=== PATIENT | male | born 1970 | race African-American/Black ===

== ENCOUNTER 2025-05-31 17:19 | Observation (INO) | payer OTHER, SELFPAY ==
[2025-05-31] VITALS (14 sets, daily range): BP systolic 162–209; BP diastolic 85–101; PULSE 68–88; RESP 8–21; TEMP 36.8; O2SAT 92–98; BMI 30.3
--- NOTE | 2025-05-31 17:34 | EKG_ITS ---
[id number] [address] Test Date: 2025-05-31 Pat Name: Petey Vaughan Department: Room: Gender: Male [employer]: : 1970 Requested By: Order Number: [id number] Reading MD: Jamal Melendez MD Measurements Intervals [place] Rate: 83 P: 63 IN: 232 QRS: 17 QRSD: 88 T: 62 QT: 360 QTc: 423 Interpretive Statements Sinus rhythm with 1st degree AV block Electronically Signed On 06-01-2025 11:24:06 PST by Jamal Melendez MD
--- NOTE | 2025-05-31 17:40 | DI.CT.S_ITS ---
PROCEDURE: CT HEAD/BRAIN WO CON INDICATIONS: facial tingling, balance changes TECHNIQUE: Noncontrast 4.5 mm thick angled axial sections acquired from the foramen magnum to the vertex, with coronal and sagittal reformats. For radiation dose reduction, the following was used: automated exposure control, adjustment of mA and/or kV according to patient size. COMPARISON: None. FINDINGS: Image quality: Diagnostic. CSF spaces: Basal cisterns are patent. No extra-axial fluid collections. Ventricles are normal in size and shape. Brain: No midline shift. No intracranial mass effect or hemorrhage. Joseph- white matter interface is normal. Skull and face: Calvarium and visualized facial bones are intact, without suspicious lesions. Sinuses: Visualized sinuses and mastoids are clear. IMPRESSION: No acute intracranial pathology. Dictated by: Kieran Cavazos M.D. on 05/31/2025 at 17:12 Approved by: Kieran Cavazos M.D. on 05/31/2025 at 17:13
--- NOTE | 2025-05-31 17:40 | DI.RAD.S_ITS ---
PROCEDURE: XR CHEST 1V INDICATIONS: Possible stroke TECHNIQUE: One view of the chest was acquired. COMPARISON: None. FINDINGS: Surgical changes and devices: None. Lungs and pleura: Lungs are clear. Right apical bulla. No pleural effusions or pneumothorax. Mediastinum: Mediastinal contours appear normal. Heart size is normal. Bones and chest wall: No suspicious bony lesions. Overlying soft tissues appear unremarkable. IMPRESSION: No acute cardiopulmonary abnormality is seen. Dictated by: Kieran Cavazos M.D. on 05/31/2025 at 17:14 Approved by: Kieran Cavazos M.D. on 05/31/2025 at 17:15
[2025-05-31 17:49] LABS: INR 0.9 (0.9-1.3); Prothrombin Time 10.6 SECONDS (9.4-12.5)
--- NOTE | 2025-05-31 17:49 | DI.CT.S_ITS ---
PROCEDURE: CT ANGIO HEAD AND NECK INDICATIONS: r facial tingling, balance changes TECHNIQUE: After the administration of intravenous contrast, 1 mm thick sections acquired from the aortic arch through the [place]. 3-dimensional aqprtwm-uibrtowjq-qtaigbhfye (MIP) and/or volume rendering reformats were acquired of the central intracranial vasculature and neck separately. For radiation dose reduction, the following was used: automated exposure control, adjustment of mA and/or kV according to patient size. COMPARISON: None. FINDINGS: Image quality: Diagnostic. Cerebral CT Angiogram: Internal carotid arteries: No acute findings. Intracranial ICA are patent with no significant stenosis. No occlusion. No aneurysm. Anterior cerebral arteries: Unremarkable. No significant stenosis. No occlusion. No aneurysm. Middle cerebral arteries: Unremarkable. No significant stenosis. No occlusion. No aneurysm. Posterior cerebral arteries: Unremarkable. No significant stenosis. No occlusion. No aneurysm. Basilar artery: Unremarkable. No significant stenosis. No occlusion. No aneurysm. Vertebral arteries: Unremarkable as visualized. Dural venous sinuses: Unremarkable given phase of enhancement. Other: Arterial phase appearance of the brain parenchyma is unremarkable. Neck CT Angiogram: Internal carotid arteries: Unremarkable. No significant stenosis. No dissection or occlusion. Common carotid arteries: Unremarkable. No significant stenosis. No dissection or occlusion. External carotid arteries: Unremarkable. No occlusion. Vertebral arteries: Unremarkable. No significant stenosis. No dissection or occlusion. Aortic Arch and Mediastinum: Partially visualized aortic arch unremarkable without evidence of aneurysm. Origins of the great vessels unremarkable. Other: Moderate paraseptal emphysema with a right apical bulla. No pneumothorax. IMPRESSION: No significant intracranial arterial abnormality is seen. No significant abnormality is seen within the arteries of the neck. Moderate paraseptal emphysema with right apical bulla. No pneumothorax. Any quantitative measurements of stenosis were performed using NASCET criteria. Dictated by: Kieran Cavazos M.D. on 05/31/2025 at 17:16 Approved by: Kieran Cavazos M.D. on 05/31/2025 at 17:20
[2025-05-31 17:52] LABS: PTT Partial Thromboplastin Tim 28 SECONDS (25.1-36.5)
[2025-05-31 17:55] LABS: Add Manual Diff / Slide Review NO; Hematocrit 43.1 % (41-53); Hemoglobin 14.1 g/dL (13.5-17.5); Lymphocytes Absolute Auto 2500 /uL (1100-4500); Mean Corpuscular HGB Conc 32.7 % (30-36); Mean Corpuscular Hemoglobin 27.3 PG (26-34); Mean Corpuscular Volume 83.5 fL (80-100); Platelet Count 210 X10^3/uL (150-400)
[2025-05-31 18:01] LABS: Alanine Aminotransferase 23 IU/L (<50); Albumin 4.4 g/dL (3.5-5.0); Albumin Globulin Ratio 1.3 (1.0-2.8); Alkaline Phosphatase 118 U/L (38-126); Blood Urea Nitrogen 16 mg/dL (9-20); Calcium 9.2 mg/dL (8.4-10.2); Carbon Dioxide 27 mmol/L (22-32); Chloride 103 mmol/L (98-107); Creatine Kinase 138 U/L (55-170); Estimated Glomerular Filt Rate > 60 mL/min (>60); Globulin 3.5 g/dL (1.7-4.1); Glucose 204 mg/dL (70-99); HEMOLYSIS 16 (0-50); Potassium 3.9 mmol/L (3.4-5.1); Sodium 140 mmol/L (137-145); Total Protein 7.9 g/dL (6.3-8.2)
[2025-05-31 18:12] LABS: Troponin I < 0.012 ng/mL (0.01-0.034)
--- NOTE | 2025-05-31 18:38 | ED_ITS ---
HPI - Neuro Symptoms/Deficit General Chief Complaint: Neuro Symptoms/Deficit Stated Complaint: possible stroke Time Seen by Provider: 05/31/25 18:08 Source: patient Mode of arrival: Ambulatory History of Present Illness HPI Narrative: 55-year-old male with a history of diabetes presents with right-sided upper extremity and facial numbness that started around 2 or 3 in the afternoon yesterday. today it felt like there was some light pressure over the right upper extremity. He never had any weakness or right facial droop or difficulty speaking. No other focal neurological deficits. No history of stroke or cardiovascular disease. He does have a history of sarcoidosis. On Anticoagulants: No Related Data Allergies Allergy/AdvReac Type Severity Reaction Status Date / Time No Known Allergies Allergy Verified 05/31/25 17:37 Review of Systems Review of Systems ROS Unobtainable: All systems reviewed & are unremarkable except as noted in HPI and below Hematologic/Lymphatic On Anticoagulants: No Patient History Social History Smoking Status: Current every day smoker Smoking Status: Current every day smoker tobacco type: cigarettes Exam Narrative Exam Narrative: General: Patient appears to be in no acute distress, acting appropriately Head: normocephalic, atraumatic, HEENT: Pupils equal round reactive, eyes tracking well, neck supple, no JVD Heart: regular rate and rhythm, no murmurs, rubs, or gallops heard Lungs: clear to auscultation, no adventitious sounds Abdomen: soft , nontender, nondistended, positive bowel sounds Neurological: Some right-sided facial numbness, moving all extremities well, alert and oriented x3, Psych: good judgment ,good insight, mood is normal. Initial Vital Signs Initial Vital Signs: Vital Signs Pulse Rate 87 05/31/25 17:28 Pulse Oximetry 97 05/31/25 17:28 Scores NIH Stroke Scale Level of Conciousness: Alert, keenly responsive Ask month/age: Answers both questions correctly. Open/close eyes, close hand: Performs both tasks correctly Best gaze horizontal: Normal Visual arizmendi: No visual loss Facial palsy: Normal symetrical movement Left arm drift: No drift for full 10 sec Right arm drift: No drift for full 10 sec Left leg drift: No drift for full 5 sec Right leg drift: No drift for full 5 sec Limb ataxia: Absent Sensory on face/arms/legs: Mild to moderate sensory loss, can tell touch Best language: No aphasia, normal Dysarthria: Normal Extinction or inattention: No abnormality Total NIH Stroke scale score: 1 Course Orders Ordered: ED Orders 05/31/25 19:46 Urine Culture Stat Urine Drug Screen, Rapid Stat Urine Microscopic Stat Acetaminophen (Acetaminophen 325 Mg Tablet) 650 mg PO Q6H PRN PRN Reason: Fever/Mild Pain (1-3) Aspirin (Aspirin Ec 81 Mg Tablet) 81 mg PO DAILY MYRNA Clopidogrel Bisulfate (Clopidogrel 75 Mg Tablet) 75 mg PO DAILY MYRNA Naloxone HCl (Naloxone 0.4 Mg/Ml Vial) 0.2 mg IV Q2MIN PRN PRN Reason: Opiate Reversal Ondansetron HCl (Ondansetron 4 Mg/2 Ml Inj) 4 mg IV Q8HR PRN PRN Reason: Nausea And Vomiting Discontinued Medications Aspirin (Aspirin Ec 325 Mg Tablet) 325 mg PO NOW ONE Stop: 05/31/25 21:00 Last Admin: 05/31/25 21:05 Dose: 325 mg Documented By: VIRGINIE Clopidogrel Bisulfate (Clopidogrel 75 Mg Tablet) 300 mg PO NOW ONE Stop: 05/31/25 21:00 Last Admin: 05/31/25 21:05 Dose: 300 mg Documented By: VIRGINIE Reevaluation(s) Reevaluation #1: Upon re-evaluation, patient is still having some slight numbness over the right side of his face Consultations Consultation #1: Dr. Davila stroke neurologist was consulted from [facility] who suggested dual antiplatelet therapy for 21 days along with a loading dose of aspirin and Plavix. Also Getting an MRI with and without contrast of the brain in the a.m.. and Getting an echocardiogram in the a.m. as well and an A1c and lipid panel. Consultation #2: Dr. Reji Odell hospitalist was consulted who graciously admitted the patient Vital Signs Vital signs: Vital Signs - 8 hr 05/31/25 17:28 05/31/25 17:29 05/31/25 17:29 Temperature Pulse Rate 87 87 Respiratory Rate Blood Pressure 205/94 H Pulse Oximetry 97 95 Oxygen Delivery Method 05/31/25 17:30 05/31/25 17:34 05/31/25 17:40 Temperature 98.3 F Pulse Rate 86 88 Respiratory Rate 18 Blood Pressure 205/94 H 209/101 H Pulse Oximetry 96 93 Oxygen Delivery Method Room Air 05/31/25 17:40 05/31/25 18:05 05/31/25 18:06 Temperature Pulse Rate 80 84 Respiratory Rate 20 Blood Pressure 192/93 H Pulse Oximetry 95 95 Oxygen Delivery Method 05/31/25 18:06 05/31/25 19:00 05/31/25 19:01 Temperature Pulse Rate 77 78 Respiratory Rate 10 L 18 Blood Pressure 201/91 H Pulse Oximetry 95 98 Oxygen Delivery Method Room Air 05/31/25 19:01 05/31/25 19:30 05/31/25 19:30 Temperature Pulse Rate 75 78 Respiratory Rate 8 L 13 Blood Pressure 202/97 H Pulse Oximetry 98 96 Oxygen Delivery Method Room Air Room Air MDM - Neuro Symptoms/Deficit Lab Data 05/31/25 17:35 05/31/25 17:35 Labs: Lab Results 05/31/25 05/31/25 05/31/25 Range/Units 17:33 17:35 19:46 WBC 5.9 (4.5-11.0) X10^3/uL RBC 5.16 (4.5-5.9) X10^6/uL Hgb 14.1 (13.5-17.5) g/dL Hct 43.1 (41-53) % MCV 83.5 (80-100) fL MCH 27.3 (26-34) PG MCHC 32.7 (30-36) % RDW 15.4 H (11.6-14.8) % Plt Count 210 (150-400) X10^3/uL Neut % (Auto) 45.3 L (50-75) % Lymph % (Auto) 43.3 H (25-40) % [place] % (Auto) 7.7 (3-14) % Eos % (Auto) 2.7 (2-4) % Baso % (Auto) 1.0 (0-2) % Neut # (Auto) 2700 (6578-1418) /uL Lymph # (Auto) 2500 (6727-0094) /uL [place] # (Auto) 500 (0-900) /uL Eos # (Auto) 200 (0-450) /uL Baso # (Auto) 100 (0-100) /uL PT 10.6 (9.4-12.5) SECONDS INR 0.9 (0.9-1.3) APTT 28 (25.1-36.5) SECONDS Sodium 140 (137-145) mmol/L Potassium 3.9 (3.4-5.1) mmol/L Chloride 103 (98-107) mmol/L Carbon Dioxide 27 (22-32) mmol/L BUN 16 (9-20) mg/dL Creatinine 1.37 H (0.66-1.25) mg/dL Estimated GFR > 60 (>60) mL/min BUN/Creatinine Ratio 11.7 (6-22) Glucose 204 H (70-99) mg/dL POC Whole Bld Glucose 194 H (70-99) mg/dL Calcium 9.2 (8.4-10.2) mg/dL Total Bilirubin 0.4 (0.2-1.3) mg/dL AST 29 (17-59) IU/L ALT 23 (<50) IU/L Alkaline Phosphatase 118 (38-126) U/L Total Creatine Kinase 138 (55-170) U/L Troponin I < 0.012 (0.01-0.034) ng/mL Total Protein 7.9 (6.3-8.2) g/dL Albumin 4.4 (3.5-5.0) g/dL Globulin 3.5 (1.7-4.1) g/dL Albumin/Globulin Ratio 1.3 (1.0-2.8) Urine RBC 0-1/hpf (0-5/HPF) Urine WBC None seen (0-5/HPF) Ur Squamous Epith Cells None seen (0-5/HPF) Urine Bacteria None seen (None) Ur Culture Indicated? Cult not indicated Vol Urine Centrifuged 10ml (spun) U Opiates 300ng/mL cut Negative (Negative) Ur Oxycodone Screen Negative (Negative) Urine Methadone Screen Negative (Negative) Ur Barbiturates Screen Negative (Negative) U Tricyclic Antidepress Negative (Negative) Ur Phencyclidine Scrn Negative (Negative) Ur Amphetamines Screen Negative (Negative) U Methamphetamines Scrn Negative (Negative) Ur MDMA Scrn (Ecstasy) Negative (Negative) U Benzodiazepines Scrn Negative (Negative) Urine Cocaine Screen Negative (Negative) U Marijuana (THC) Screen Negative (Negative) Urine pH Normal (Normal) Urine Specific [place] Normal (Normal) Ur Creatinine Normal (Normal) Point of Care Testing Glucose POC 194 Urine Dip Bedside Urine Glucose Negative Bedside Urine Bilirubin - Negative Bedside Urine Ketone - Negative Urine Specific [place] 1.005 Bedside Urine Occult Blood +/- Bedside Urine pH 7.5 Bedside Urine Protein +/- 15 Bedside Urine Urobilinogen +/- 1mg Bedside Urine Nitrite - Negative Bedside Urine Leukocytes - Negative Esterase Imaging Data CTA - brain/neck: Radiologist's Impression: No significant intracranial arterial abnormality is seen. No significant abnormality is seen within the arteries of the neck. Moderate paraseptal emphysema with right apical bulla. No pneumothorax. CT scan - head: Radiologist's Impression: No acute intracranial abnormality Chest x-ray: Radiologist's Impression: No acute cardiopulmonary abnormality MDM Narrative Medical decision making narrative: 55-year-old male who started with sudden right-sided numbness and light sensation that started yesterday and is still persisting today off and on. Patient's initial imaging studies were insignificant but patient will be admitted for a stroke rule out with permissive hypertension, MRI of the brain with and without contrast in a.m. and started on dual antiplatelet therapy for 21 days. Loading dose of aspirin and Plavix were given here in the ED. the patient's NIH score was 1. Hospitalist Dr. Odell graciously admitted the patient for further workup in the a.m.. Discharge Plan Departure Patient Disposition: Admitted as Observation Clinical Impression: Transient cerebral ischemia Qualifiers: Transient cerebral ischemia type: other Qualified Code(s): G45.8 - Other transient cerebral ischemic attacks and related syndromes Admit Date/Time: 05/31/25 21:12 Admit Provider: Reji Odell
--- NOTE | 2025-05-31 19:50 | PC.NURSE ---
Pt ambulatory to restroom without difficulty or assistance
[2025-05-31 19:57] LABS: Ur Specific Gravity Normal (Normal)
[2025-05-31 19:59] LABS: UR Morphine/Opiate cutoff 300 Negative (Negative); Urine MDMA Negative (Negative); Urine Methamphetamines Negative (Negative); Urine Tetrahydrocannabinol Negative (Negative); Urine Tricyclic Antidepressant Negative (Negative)
[2025-05-31 20:12] LABS: Culture Indicated Urine Cult Not Indicated
[2025-05-31] MEDS: ASPIRIN EC 325 MG TABLET PO (21:05)
[2025-05-31] MEDS: CLOPIDOGREL 75 MG TABLET 300 MG PO (21:05)
--- NOTE | 2025-05-31 23:10 | PC.NURSE ---
Pt in hospital bed, warm blankets provided. Continued plan of care discussed. No further requests or concerns at this time. Pt reconnected to cardiac, resp, blood pressure, and pulse ox monitors with alarms on and audible. VS stable at this time. Call light within reach.
[2025-06-01] VITALS (25 sets, daily range): BP systolic 110–174; BP diastolic 67–81; PULSE 60–87; RESP 9–23; O2SAT 94–98
--- NOTE | 2025-06-01 02:56 | DI.MRI.S_ITS ---
PROCEDURE: MR HEAD/BRAIN WO CON INDICATIONS: right sided weakness TECHNIQUE: Noncontrast axial T1 spin echo, axial T2 fast spin echo, sagittal and axial FLAIR, coronal T2 fast spin echo, axial gradient echo, axial diffusion and ADC through the brain. COMPARISON: [facility], CT, CT HEAD/BRAIN WO CON, 05/31/2025, 17:51. FINDINGS: Image quality: Excellent. CSF Spaces: Basal cisterns are patent. No extra-axial fluid collections. Ventricles are normal in size and shape. Brain: No intracranial masses or hemorrhage. Joseph/white matter interface is normal. Brainstem appears normal. Diffusion-weighted images demonstrate no acute infarct. No chronic ischemic insults. Normal intravascular flow voids are present. Skull and face: Calvarium has normal marrow signal. Orbits appear normal. Sinuses: Sinuses and mastoids are clear. IMPRESSION: Normal brain MRI. No acute intracranial process. Dictated by: Santino Alvarado M.D. on 06/01/2025 at 9:00 Approved by: Santino Alvarado M.D. on 06/01/2025 at 9:01
--- NOTE | 2025-06-01 02:59 | PC.NURSE ---
Pt resting quietly with eyes closed, resps even and not labored. No distress noted at this time. Pt opens eyes and acknowledges staff when door opens, then closes eyes and lies head back down. Pt remains connected to awake overnight monitor as ordered. VS stable at this time. Call light within reach. Dr. Odell on video visualizes pt at this time but does not conduct interview.
--- NOTE | 2025-06-01 06:01 | DI.ECHO.S_ITS ---
[facility] +---------+ Hospital : : [address] : : [place] : : [address] : : Phone: [phone] Echocardiogram Report + + :Name: RUTH MARIN Study Date: 06/01/2025 Height: 73 in : :Hospital ReadingLocation: Weight: 232 lb : : Gender: Male BSA: 2.3 m2 : :: 1970 Age: 55 yrs BP: 160/78 mmHg: :Reason For Study: TIA : :Ordering Physician: DEQUAN, : :RICK Performed By: Musa Ross : :Referring: RICK BOWDEN : + + Interpretation Summary - The left ventricular contractility is normal. Estimated ejection fraction is greater than 60% with no segmental wall motion abnormalities. Mild concentric LVH. Normal diastolic function. - The right ventricular contractility is normal. - All cardiac chambers are normal size. - No significant valvular abnormalities. - No intracardiac shunts noted on agitated saline contrast study. - No obvious intracardiac masses nor thrombi. - No hemodynamically significant pericardial effusion. Conclusion: Normal biventricular function with no significant valvular abnormalities nor intracardiac shunt. Procedure: A two-dimensional transthoracic echocardiogram with color flow and Doppler was performed. A saline contrast injection was performed to assess for cardiac shunting. The study quality was technically good. There is no prior echocardiogram noted for this patient. The patient was in normal sinus rhythm during the exam. Left Ventricle: The left ventricle is normal in size. Left ventricular wall thickness is mildly increased. There is no ventricular septal defect visualized. The ejection fraction is estimated to be 60-65%. There are no focal wall motion abnormalities. Diastolic parameters suggest probable normal left ventricular diastolic function and normal filling pressures. Right Ventricle: The right ventricle is grossly normal size. The right ventricular systolic function is normal. Atria: The left atrial size is normal. Right atrial size is normal. Injection of contrast documented no interatrial shunt. Mitral Valve: The mitral valve leaflets appear mildly thickened. There is no mitral regurgitation noted. Aortic Valve: The aortic valve is trileaflet. The aortic valve is mildly calcified. No aortic regurgitation is present. Tricuspid Valve: The tricuspid valve leaflets are thin and pliable. No tricuspid regurgitation. Pulmonic Valve: The pulmonic valve is not well seen, but is grossly normal. There is no pulmonic valvular regurgitation. Great Vessels: The aortic root is normal size. The dimensions of the ascending aorta are normal. The pulmonary artery is normal size. The inferior vena cava was not visualized. Pericardium/ Pleura There is no pericardial effusion. MMode/2D Measurements & Calculations LVIDd: 5.1 cm LVOT diam: 2.0 cm LVIDs: 3.6 cm Ao root diam: 3.4 cm FS: 29.0 % asc Aorta Diam: 3.4 cm EPSS: 0.66 cm IVSd: 1.3 cm LVPWd: 1.1 cm LV jacques. diameter/BSA (cm/m^2): 2.2 LV sys. diameter/BSA (cm/m^2): 1.6 LA A2 area: 13.5 cm2 RA long axis: 4.3 cm LA A4 area: 16.5 cm2 RA area: 15.1 cm2 LA length (vol): 4.9 cm RA vol: 44.8 ml LA vol: 38.9 ml RA : 19.6 ml/m2 LA vol index: 17.0 ml/m2 TAPSE: 2.8 cm Doppler Measurements & Calculations Ao V2 max: 137.0 cm/sec LVOT Max Xavier: 116.2 cm/sec Ao V2 mean: 95.0 cm/sec LV V1 max P.4 mmHg Ao max P.5 mmHg LV V1 VTI: 28.3 cm Ao mean P.9 mmHg FLO(I,D): 2.9 cm2 Ao V2 VTI: 30.7 cm FLO(V,D): 2.7 cm2 sev ratio: 0.92 FLO indexed to BSA (cm^2/m^2): 1.3 MV E max xavier: 76.5 cm/sec PA V2 max: 100.9 cm/sec MV A max xavier: 73.7 cm/sec PA V2 mean: 62.6 cm/sec MV E/A: 1.0 PA mean P.8 mmHg Med Peak E' Xavier: 6.7 cm/sec PA pr(Accel): 48.2 mmHg E/E' med: 11.4 Lat Peak E' Xavier: 9.5 cm/sec E/E' lat: 8.1 E/e' average: 9.7 MV dec time: 0.16 sec SV(LVOT): 89.8 ml Reading Physician:BELEN
--- NOTE | 2025-06-01 06:09 | P.HP_ITS ---
History of Present Illness History of Present Illness Date Patient Seen: 05/31/25 Time Patient Seen: 23:14 Chief complaint: possible stroke Narrative: 55-year-old male with past medical history of diabetes and sarcoidosis presents with right sided numbness. Per the patient's report, around 2 PM yesterday, the patient started to have acute onset of right sided facial and upper extremity numbness. The patient states that he feels like pressure over his right arm today but otherwise denies any weakness, slurred speech or facial drooping. The patient denies any prior history of stroke. Otherwise patient denies any fever or chills, nausea, vomiting, Amparo, chest pain or shortness of breath. In the emergency room, the patient was hemodynamically stable. CT scan and CT angio of the head and neck shows no acute finding. Patient blood pressure was slightly high with systolic in the 190s to 200s. Patient NIH score was 1. Our ER physician did discuss the case with neurology on-call and recommended dual antiplatelet therapy in which patient did have full dose aspirin and Plavix loading in the ER. Her ER physician requested admission for brain MRI and echocardiogram in the morning. [facility] Social History Smoking Status: Current every day smoker Meds Home Medications and Allergies Allergies Allergy/AdvReac Type Severity Reaction Status Date / Time No Known Allergies Allergy Verified 05/31/25 17:37 Review of Systems Review of Systems ROS: Yes All systems reviewed with the patient and are negative except as otherwise documented Exam Vital Signs (past 8 hours): - 05/31/25 23:08 06/01/25 02:58 Pulse Rate 77 62 Respiratory Rate 16 14 Blood Pressure [Left Arm] 162/85 H 155/70 H Pulse Oximetry 97 95 Oxygen Delivery Method Room Air Room Air Oxygen Delivery Method Room Air Narrative Exam Narrative: Physical Exam: GENERAL: The patient is not in any acute distressed. Awake and alert. HEENT: Nonicteric sclerae, PERRLA, EOMI. Oropharynx clear. Moist mucous membranes. Conjunctivae appear well perfused. HEART: Regular rate and rhythm without murmurs. No lower extremities edema. LUNGS: Clear to auscultation bilaterally. No wheezing, crackles or rhonchi ABDOMEN: Soft, positive bowel sounds, nontender. SKIN: No rash, no excessive bruising, petechiae, or purpura. NEUROLOGIC: AxO x 3. Cranial nerves II-XII intact without motor/sensory deficit. Objective Labs 05/31/25 17:35 05/31/25 17:35 Labs: Laboratory Results - last 24 hr 05/31/25 05/31/25 05/31/25 17:33 17:35 19:46 WBC 5.9 RBC 5.16 Hgb 14.1 Hct 43.1 MCV 83.5 MCH 27.3 MCHC 32.7 RDW 15.4 H Plt Count 210 Neut % (Auto) 45.3 L Lymph % (Auto) 43.3 H [place] % (Auto) 7.7 Eos % (Auto) 2.7 Baso % (Auto) 1.0 Neut # (Auto) 2700 Lymph # (Auto) 2500 [place] # (Auto) 500 Eos # (Auto) 200 Baso # (Auto) 100 PT 10.6 INR 0.9 APTT 28 Sodium 140 Potassium 3.9 Chloride 103 Carbon Dioxide 27 BUN 16 Creatinine 1.37 H Estimated GFR > 60 BUN/Creatinine Ratio 11.7 Glucose 204 H POC Whole Bld Glucose 194 H Calcium 9.2 Total Bilirubin 0.4 AST 29 ALT 23 Alkaline Phosphatase 118 Total Creatine Kinase 138 Troponin I < 0.012 Total Protein 7.9 Albumin 4.4 Globulin 3.5 Albumin/Globulin Ratio 1.3 Urine RBC 0-1/hpf Urine WBC None seen Ur Squamous Epith Cells None seen Urine Bacteria None seen Ur Culture Indicated? Cult not indicated Vol Urine Centrifuged 10ml (spun) U Opiates 300ng/mL cut Negative Ur Oxycodone Screen Negative Urine Methadone Screen Negative Ur Barbiturates Screen Negative U Tricyclic Antidepress Negative Ur Phencyclidine Scrn Negative Ur Amphetamines Screen Negative U Methamphetamines Scrn Negative Ur MDMA Scrn (Ecstasy) Negative U Benzodiazepines Scrn Negative Urine Cocaine Screen Negative U Marijuana (THC) Screen Negative Urine pH Normal Urine Specific [place] Normal Ur Creatinine Normal Assessment & Plan Assessment & Plan narrative: Symptoms of stroke with right facial and right arm numbness. Admit the patient to medical telemetry under observation. NIH score of 1. Otherwise patient is nonfocal. Will continue dual antiplatelet while waiting brain MRI with and without contrast. Will also obtain echocardiogram. PT OT in the morning. Will check a1c and lipids History of diabetes. Glucose in the 200s. Subcu insulin and monitor glucose. MAIKOL. Creatinine 1.4. Likely from dehydration. IV fluid and monitor renal function. Hypertension. Will monitor blood pressure and treat accordingly. DVT prophylaxis SCDs and on dual antiplatelet CODE STATUS full code. Disposition likely home in 1 to 2 days - As the provider of this telehealth evaluation, requested by the patient's evaluating physician, I attest that I introduced myself to the patient, provided my credentials and determined that telemedicine via a real-time, 2 way interactive audio and video platform is an appropriate and effective means of providing this service. - I reviewed the patient's chart and had a discussion with the member of the patient's treatment team. - The patient and I mutually agreed with continuation of this evaluation via telemedicine. The patient consented for the telemedicine evaluation. - This virtual encounter was taken place from [place] by Dr. Reji Odell. The patient was evaluated at [facility]. The encounter was approximately 35 minutes. The nurse was present during the entire time of the encounter and was able assists with the stethoscope to listen to the patients. Time-Based Coding :: [TOTAL MINUTES] spent with patient and on the chart (including review of chart, obtaining history, exam, reviewing outside data, placing orders, documenting exam and treatment plan, and counseling patient) on [DATE].
[2025-06-01 06:50] LABS: Add Manual Diff / Slide Review NO; Hematocrit 41.8 % (41-53); Hemoglobin 13.7 g/dL (13.5-17.5); Lymphocytes Absolute Auto 2100 /uL (1100-4500); Mean Corpuscular HGB Conc 32.7 % (30-36); Mean Corpuscular Hemoglobin 27.3 PG (26-34); Mean Corpuscular Volume 83.3 fL (80-100); Platelet Count 194 X10^3/uL (150-400)
[2025-06-01 07:05] LABS: Blood Urea Nitrogen 14 mg/dL (9-20); Calcium 9.2 mg/dL (8.4-10.2); Carbon Dioxide 28 mmol/L (22-32); Chloride 106 mmol/L (98-107); Cholesterol 230 mg/dL (140-199); Estimated Glomerular Filt Rate > 60 mL/min (>60); Glucose 152 mg/dL (70-99); HDL Cholesterol 46 mg/dL (40-60); HEMOLYSIS 48 (0-50); Potassium 4.4 mmol/L (3.4-5.1); Sodium 138 mmol/L (137-145); Triglycerides 71 mg/dL (35-150)
[2025-06-01 07:08] LABS: Hemoglobin A1C% w Est Avg Glu 7.5 % (4.0-6.0)
--- NOTE | 2025-06-01 07:13 | P.HP_ITS ---
History of Present Illness History of Present Illness Date Patient Seen: 06/01/25 Chief complaint: possible stroke Narrative: 55-year-old male with past medical history of diabetes and sarcoidosis presents with right sided numbness. Per the patient's report, around 2 PM yesterday, the patient started to have acute onset of right sided facial and upper extremity numbness. The patient states that he feels like pressure over his right arm today but otherwise denies any weakness, slurred speech or facial drooping. The patient denies any prior history of stroke. Otherwise patient denies any fever or chills, nausea, vomiting, [place], chest pain or shortness of breath. In the emergency room, the patient was hemodynamically stable. CT scan and CT angio of the head and neck shows no acute finding. Patient blood pressure was slightly high with systolic in the 190s to 200s. Patient NIH score was 1. Our ER physician did discuss the case with neurology on-call and recommended dual antiplatelet therapy in which patient did have full dose aspirin and Plavix loading in the ER. Her ER physician requested admission for brain MRI and echocardiogram in the morning. [facility] Social History Smoking Status: Current every day smoker Meds Home Medications and Allergies Allergies Allergy/AdvReac Type Severity Reaction Status Date / Time No Known Allergies Allergy Verified 05/31/25 17:37 Review of Systems Review of Systems ROS: Yes All systems reviewed with the patient and are negative except as otherwise documented Exam Vital Signs (past 8 hours): - 05/31/2523:08 06/01/2502:58 Pulse Rate 77 62 Respiratory Rate 16 14 Blood Pressure [Left Arm] 162/85 H 155/70 H Pulse Oximetry 97 95 Oxygen Delivery Method Room Air Room Air Oxygen Delivery Method Room Air Narrative Exam Narrative: Physical Exam: GENERAL: The patient is not in any acute distressed. Awake and alert. HEENT: Nonicteric sclerae, PERRLA, EOMI. Oropharynx clear. Moist mucous membranes. Conjunctivae appear well perfused. HEART: Regular rate and rhythm without murmurs. No lower extremities edema. LUNGS: Clear to auscultation bilaterally. No wheezing, crackles or rhonchi ABDOMEN: Soft, positive bowel sounds, nontender. SKIN: No rash, no excessive bruising, petechiae, or purpura. NEUROLOGIC: AxO x 3. Cranial nerves II-XII intact without motor/sensory deficit. Objective Labs 05/31/25 17:35 05/31/25 17:35 Labs: Laboratory Results - last 24 hr 05/31/25 05/31/25 05/31/25 17:33 17:35 19:46 WBC 5.9 RBC 5.16 Hgb 14.1 Hct 43.1 MCV 83.5 MCH 27.3 MCHC 32.7 RDW 15.4 H Plt Count 210 Neut % (Auto) 45.3 L Lymph % (Auto) 43.3 H [place] % (Auto) 7.7 Eos % (Auto) 2.7 Baso % (Auto) 1.0 Neut # (Auto) 2700 Lymph # (Auto) 2500 [place] # (Auto) 500 Eos # (Auto) 200 Baso # (Auto) 100 PT 10.6 INR 0.9 APTT 28 Sodium 140 Potassium 3.9 Chloride 103 Carbon Dioxide 27 BUN 16 Creatinine 1.37 H Estimated GFR > 60 BUN/Creatinine Ratio 11.7 Glucose 204 H POC Whole Bld Glucose 194 H Calcium 9.2 Total Bilirubin 0.4 AST 29 ALT 23 Alkaline Phosphatase 118 Total Creatine Kinase 138 Troponin I < 0.012 Total Protein 7.9 Albumin 4.4 Globulin 3.5 Albumin/Globulin Ratio 1.3 Urine RBC 0-1/hpf Urine WBC None seen Ur Squamous Epith Cells None seen Urine Bacteria None seen Ur Culture Indicated? Cult not indicated Vol Urine Centrifuged 10ml (spun) U Opiates 300ng/mL cut Negative Ur Oxycodone Screen Negative Urine Methadone Screen Negative Ur Barbiturates Screen Negative U Tricyclic Antidepress Negative Ur Phencyclidine Scrn Negative Ur Amphetamines Screen Negative U Methamphetamines Scrn Negative Ur MDMA Scrn (Ecstasy) Negative U Benzodiazepines Scrn Negative Urine Cocaine Screen Negative U Marijuana (THC) Screen Negative Urine pH Normal Urine Specific [place] Normal Ur Creatinine Normal Assessment & Plan Assessment & Plan narrative: Symptoms of stroke with right facial and right arm numbness. Admit the patient to medical telemetry under observation. NIH score of 1. Otherwise patient is nonfocal. Will continue dual antiplatelet while waiting brain MRI with and without contrast. Will also obtain echocardiogram. PT OT in the morning. Will check a1c and lipids History of diabetes. Glucose in the 200s. Subcu insulin and monitor glucose. MAIKOL. Creatinine 1.4. Likely from dehydration. IV fluid and monitor renal function. Hypertension. Will monitor blood pressure and treat accordingly. DVT prophylaxis SCDs and on dual antiplatelet CODE STATUS full code. Disposition likely home in 1 to 2 days [facility] Social History Smoking Status: Current every day smoker Meds Home Medications and Allergies Allergies Allergy/AdvReac Type Severity Reaction Status Date / Time No Known Allergies Allergy Verified 05/31/25 17:37 Exam Vital Signs (past 8 hours): - 06/01/25 02:58 06/01/25 06:40 Pulse Rate 62 68 Respiratory Rate 14 14 Blood Pressure [Left Arm] 155/70 H 160/78 H Pulse Oximetry 95 97 Oxygen Delivery Method Room Air Room Air Oxygen Delivery Method Room Air Objective Labs 06/01/25 06:38 06/01/25 06:38 Labs: Laboratory Results - last 24 hr 05/31/25 05/31/25 05/31/25 17:33 17:35 19:46 WBC 5.9 RBC 5.16 Hgb 14.1 Hct 43.1 MCV 83.5 MCH 27.3 MCHC 32.7 RDW 15.4 H Plt Count 210 Neut % (Auto) 45.3 L Lymph % (Auto) 43.3 H [place] % (Auto) 7.7 Eos % (Auto) 2.7 Baso % (Auto) 1.0 Neut # (Auto) 2700 Lymph # (Auto) 2500 [place] # (Auto) 500 Eos # (Auto) 200 Baso # (Auto) 100 PT 10.6 INR 0.9 APTT 28 Sodium 140 Potassium 3.9 Chloride 103 Carbon Dioxide 27 BUN 16 Creatinine 1.37 H Estimated GFR > 60 BUN/Creatinine Ratio 11.7 Glucose 204 H POC Whole Bld Glucose 194 H Calcium 9.2 Total Bilirubin 0.4 AST 29 ALT 23 Alkaline Phosphatase 118 Total Creatine Kinase 138 Troponin I < 0.012 Total Protein 7.9 Albumin 4.4 Globulin 3.5 Albumin/Globulin Ratio 1.3 Triglycerides Cholesterol LDL Cholesterol, Calc HDL Cholesterol Urine RBC 0-1/hpf Urine WBC None seen Ur Squamous Epith Cells None seen Urine Bacteria None seen Ur Culture Indicated? Cult not indicated Vol Urine Centrifuged 10ml (spun) U Opiates 300ng/mL cut Negative Ur Oxycodone Screen Negative Urine Methadone Screen Negative Ur Barbiturates Screen Negative U Tricyclic Antidepress Negative Ur Phencyclidine Scrn Negative Ur Amphetamines Screen Negative U Methamphetamines Scrn Negative Ur MDMA Scrn (Ecstasy) Negative U Benzodiazepines Scrn Negative Urine Cocaine Screen Negative U Marijuana (THC) Screen Negative Urine pH Normal Urine Specific [place] Normal Ur Creatinine Normal 06/01/25 06:38 WBC 4.6 RBC 5.02 Hgb 13.7 Hct 41.8 MCV 83.3 MCH 27.3 MCHC 32.7 RDW 15.5 H Plt Count 194 Neut % (Auto) 39.8 L Lymph % (Auto) 46.5 H [place] % (Auto) 9.0 Eos % (Auto) 3.6 Baso % (Auto) 1.1 Neut # (Auto) 1800 Lymph # (Auto) 2100 [place] # (Auto) 400 Eos # (Auto) 200 Baso # (Auto) 100 PT INR APTT Sodium 138 Potassium 4.4 Chloride 106 Carbon Dioxide 28 BUN 14 Creatinine 1.26 H Estimated GFR > 60 BUN/Creatinine Ratio 11.1 Glucose 152 H POC Whole Bld Glucose Calcium 9.2 Total Bilirubin AST ALT Alkaline Phosphatase Total Creatine Kinase Troponin I Total Protein Albumin Globulin Albumin/Globulin Ratio Triglycerides 71 Cholesterol 230 H LDL Cholesterol, Calc 170 H HDL Cholesterol 46 Urine RBC Urine WBC Ur Squamous Epith Cells Urine Bacteria Ur Culture Indicated? Vol Urine Centrifuged U Opiates 300ng/mL cut Ur Oxycodone Screen Urine Methadone Screen Ur Barbiturates Screen U Tricyclic Antidepress Ur Phencyclidine Scrn Ur Amphetamines Screen U Methamphetamines Scrn Ur MDMA Scrn (Ecstasy) U Benzodiazepines Scrn Urine Cocaine Screen U Marijuana (THC) Screen Urine pH Urine Specific [place] Ur Creatinine Assessment & Plan Time-Based Coding :: [TOTAL MINUTES] spent with patient and on the chart (including review of chart, obtaining history, exam, reviewing outside data, placing orders, documenting exam and treatment plan, and counseling patient) on [DATE].
[2025-06-01] MEDS: CLOPIDOGREL 75 MG TABLET PO (08:55)
[2025-06-01] MEDS: ASPIRIN EC 81 MG TABLET PO (08:55)
--- NOTE | 2025-06-01 09:07 | PC.NURSE ---
ate 100 percent of breakfast before swallowing test
--- NOTE | 2025-06-01 11:34 | PT-IP ANOTE ---
Reviewed chart and spoke with his nurse. His head CT and MRI are both negative. Nursing reports no PT/OT/ST needs at this time. Anticipate discharge home today.
--- NOTE | 2025-06-01 11:35 | OT.IPNOTE ---
OT consult received and chart reviewed. Pt's MRI has come back negative. Spoke with nurse who consulted with MD and said it was appropriate to dc therapy orders.
--- NOTE | 2025-06-01 13:56 | PC.NURSE ---
Addendum entered by Mayda Hernandez RN 06/01/25 14:00: Pt is under care of Dr. Cochran. MD was contacted to address pt's concern's. Original Note: Pt has declined 1200 insulin admin for this RN as well as the last two ordered doses for prior shift RNs (see MAR). States he only checks BG sporadically and that he wants to go home. Dr. Ashby aware.
--- NOTE | 2025-06-01 13:57 | P.DS_ITS ---
History of Present Illness History of Present Illness Date Patient Seen: 06/01/25 Time Patient Seen: 13:57 Chief complaint: possible stroke Narrative: 55-year-old male with past medical history of diabetes and sarcoidosis presents with right sided numbness. Per the patient's report, around 2 PM yesterday, the patient started to have acute onset of right sided facial and upper extremity numbness. The patient states that he feels like pressure over his right arm today but otherwise denies any weakness, slurred speech or facial drooping. The patient denies any prior history of stroke. Otherwise patient denies any fever or chills, nausea, vomiting, Amparo, chest pain or shortness of breath. In the emergency room, the patient was hemodynamically stable. CT scan and CT angio of the head and neck shows no acute finding. Patient blood pressure was slightly high with systolic in the 190s to 200s. Patient NIH score was 1. Our ER physician did discuss the case with neurology on-call and recommended dual antiplatelet therapy in which patient did have full dose aspirin and Plavix loading in the ER. Her ER physician requested admission for brain MRI and echocardiogram in the morning. Discharge Providers Provider Date of admission: 05/31/25 21:12 Discharge Date: 06/01/25 Consults: 05/31/25 22:04 Consult to Occupational Therapy Evaluate & Treat Comment: Physician Instructions: Evaluate and treat Consult to Physical Therapy Evaluate & Treat Comment: Physician Instructions: Evaluate and Treat Discharge provider: Leslie Cochran MD Summary Hospital Course Hospital Course: Symptoms of stroke/TIA with right facial and right arm numbness. NIH score of 1. Otherwise patient has been nonfocal. Brain MRI, CTA neck and echocardiogram are normal. A1c is 7.5. Cholesterol is 230 and LDL is 170. Patient declined a full 24 hours of observation. He was discharged home with the planned Plavix/aspirin per Neurology. Defer to PCP possibility of statin therapy. Resume home insulin. Patient had refused to use the substituted Lantus (on Levemir at home) and the formulary short acting insulin (on a different insulin at home) History of diabetes. Glucose in the 200s. A1C 7.5. Refused to use the substituted Lantus (on Levemir at home) and the formulary short acting insulin (on a different insulin at home) MAIKOL. Creatinine 1.4, f/u down to 1.26. Likely from dehydration. IV fluid. Hypertension. Follow up with PCP and consider additional treatment. Right apical bulla and paraseptal emphysema: Defer follow up CT chest and approach to PCP. Patient was noted to be quite verbally brief and challenging to communicate with. His desire to leave the hospital, go home before completing the usual observation on telemetry, appears to be in internal/private issue that he did not wish to discuss. Status at Discharge Cognitive/behavioral status at discharge: at baseline, oriented Functional status at discharge: independent ambulation Overall status at discharge: patient is back to baseline Time Spent with Patient Time spent: Less than 30 minutes Exam Vital Signs (past 8 hours): - 06/01/25 06:00 06/01/25 06:30 06/01/25 06:38 Pulse Rate 73 69 Respiratory Rate 14 12 Blood Pressure 160/78 H Blood Pressure [Left Arm] Pulse Oximetry Oxygen Delivery Method 06/01/25 06:38 06/01/25 06:40 06/01/25 07:00 Pulse Rate 67 68 66 Respiratory Rate 12 14 9 L Blood Pressure Blood Pressure [Left Arm] 160/78 H Pulse Oximetry 97 Oxygen Delivery Method Room Air 06/01/25 07:30 06/01/25 08:48 06/01/25 08:48 Pulse Rate 66 74 Respiratory Rate 23 Blood Pressure 169/80 H Blood Pressure [Left Arm] Pulse Oximetry 94 Oxygen Delivery Method 06/01/25 08:49 06/01/25 11:17 06/01/25 11:18 Pulse Rate 74 79 79 Respiratory Rate 18 Blood Pressure 169/80 H Blood Pressure [Left Arm] Pulse Oximetry 96 97 98 Oxygen Delivery Method Room Air 06/01/25 11:18 06/01/25 11:19 Pulse Rate 87 Respiratory Rate 16 Blood Pressure 110/67 110/67 Blood Pressure [Left Arm] Pulse Oximetry 98 Oxygen Delivery Method Room Air Oxygen Delivery Method Room Air Narrative Exam Narrative: Alert and oriented x3. Very brief and minimally communicative. Heart is regular rate and rhythm without murmur. Lungs are clear to auscultation bilaterally. Extremities have no ankle edema. Cranial nerves 2-12 test intact. Motor function is 5/5 throughout. There is no tremor. [id number] pointing is normal bilaterally. Objective Labs 06/01/25 06:38 06/01/25 06:38 Labs: Laboratory Results - last 24 hr 05/31/25 05/31/25 05/31/25 17:33 17:35 19:46 WBC 5.9 RBC 5.16 Hgb 14.1 Hct 43.1 MCV 83.5 MCH 27.3 MCHC 32.7 RDW 15.4 H Plt Count 210 Neut % (Auto) 45.3 L Lymph % (Auto) 43.3 H [place] % (Auto) 7.7 Eos % (Auto) 2.7 Baso % (Auto) 1.0 Neut # (Auto) 2700 Lymph # (Auto) 2500 [place] # (Auto) 500 Eos # (Auto) 200 Baso # (Auto) 100 PT 10.6 INR 0.9 APTT 28 Sodium 140 Potassium 3.9 Chloride 103 Carbon Dioxide 27 BUN 16 Creatinine 1.37 H Estimated GFR > 60 BUN/Creatinine Ratio 11.7 Glucose 204 H POC Whole Bld Glucose 194 H Hemoglobin A1c Calcium 9.2 Total Bilirubin 0.4 AST 29 ALT 23 Alkaline Phosphatase 118 Total Creatine Kinase 138 Troponin I < 0.012 Total Protein 7.9 Albumin 4.4 Globulin 3.5 Albumin/Globulin Ratio 1.3 Triglycerides Cholesterol LDL Cholesterol, Calc HDL Cholesterol Urine RBC 0-1/hpf Urine WBC None seen Ur Squamous Epith Cells None seen Urine Bacteria None seen Ur Culture Indicated? Cult not indicated Vol Urine Centrifuged 10ml (spun) U Opiates 300ng/mL cut Negative Ur Oxycodone Screen Negative Urine Methadone Screen Negative Ur Barbiturates Screen Negative U Tricyclic Antidepress Negative Ur Phencyclidine Scrn Negative Ur Amphetamines Screen Negative U Methamphetamines Scrn Negative Ur MDMA Scrn (Ecstasy) Negative U Benzodiazepines Scrn Negative Urine Cocaine Screen Negative U Marijuana (THC) Screen Negative Urine pH Normal Urine Specific [place] Normal Ur Creatinine Normal 06/01/25 06/01/25 06:38 07:59 WBC 4.6 RBC 5.02 Hgb 13.7 Hct 41.8 MCV 83.3 MCH 27.3 MCHC 32.7 RDW 15.5 H Plt Count 194 Neut % (Auto) 39.8 L Lymph % (Auto) 46.5 H [place] % (Auto) 9.0 Eos % (Auto) 3.6 Baso % (Auto) 1.1 Neut # (Auto) 1800 Lymph # (Auto) 2100 [place] # (Auto) 400 Eos # (Auto) 200 Baso # (Auto) 100 PT INR APTT Sodium 138 Potassium 4.4 Chloride 106 Carbon Dioxide 28 BUN 14 Creatinine 1.26 H Estimated GFR > 60 BUN/Creatinine Ratio 11.1 Glucose 152 H POC Whole Bld Glucose 166 H Hemoglobin A1c 7.5 H Calcium 9.2 Total Bilirubin AST ALT Alkaline Phosphatase Total Creatine Kinase Troponin I Total Protein Albumin Globulin Albumin/Globulin Ratio Triglycerides 71 Cholesterol 230 H LDL Cholesterol, Calc 170 H HDL Cholesterol 46 Urine RBC Urine WBC Ur Squamous Epith Cells Urine Bacteria Ur Culture Indicated? Vol Urine Centrifuged U Opiates 300ng/mL cut Ur Oxycodone Screen Urine Methadone Screen Ur Barbiturates Screen U Tricyclic Antidepress Ur Phencyclidine Scrn Ur Amphetamines Screen U Methamphetamines Scrn Ur MDMA Scrn (Ecstasy) U Benzodiazepines Scrn Urine Cocaine Screen U Marijuana (THC) Screen Urine pH Urine Specific [place] Ur Creatinine PFSH Social History Smoking Status: Current every day smoker Discharge Plan Discharge Plan Patient Disposition: Home Provider Discharge Comment: Follow up with your PCP in 1-2 weeks. Discharge orders & Medications Prescriptions: New clopidogrel 75 mg Tablet 75 mg PO DAILY Qty: 30 0RF aspirin 81 mg Tablet,Delayed Release (Dr/Ec) 81 mg PO DAILY Qty: 30 0RF Diet/Activity/Treatments Diet: Carb-consistent/Diabetic Visit Report/Discharge Packet Instructions: DI for Transient Ischemic Attack, Clopidogrel, Aspirin Stand Alone Forms: Patient Portal/API, Stroke Signs & Symptoms Discharge Data Attending Provider: Reji Odell Admit Date/Time: 05/31/25 21:12
== END 2025-06-01 14:50 | disposition home or self-care (01) ==
LOC: ED 19:07 → AC 21:12
PROVIDERS: Emergency Medicine; Admitting Provider Internal Medicine; Emergency Provider Family Medicine; Referring Provider Family Medicine; Visit Provider Internal Medicine
DX: R20.0 Anesthesia of skin (principal); R29.701 NIHSS score 1; N17.9 Acute kidney failure, unspecified; E11.9 Type 2 diabetes mellitus without complications; I10 Essential (primary) hypertension; J43.8 Other emphysema; F17.210 Nicotine dependence, cigarettes, uncomplicated; Z79.4 Long term (current) use of insulin
CPT/HCPCS: 36415; 70450; 70496; 70498; 70551; 71045; 80048; 80053; 80061; 80305; 81003; 81015; 82550; 82962; 83036; 84484; 85025; 85610; 85730; 87086; 87147; 93005; 93010; 93306; 99284; 99285; G0378; J1815